=== PATIENT | male | born 1975 | race Caucasian/White ===

== ENCOUNTER 2018-05-18 09:25 | Emergency (ER) | payer MEDICAID ==
[~2018-05-18] VITALS: Ht 180.3 cm; Wt 102.0 kg
[~2018-05-18 09:25] MED LIST: CYCL-36 PO; MOBI15TA PO
[2018-05-18 09:28] VITALS: BP 147/65; PULSE 97; RESP 16; TEMP 100.4; O2SAT 96
[2018-05-18] MEDS ORDERED: MORPHINE SULFATE 4 MG/ML INJ IV PUSH ONE (09:45)
[2018-05-18] MEDS ORDERED: SODIUM CHLOR 0.9% 1000 ML INJ 1,000 ML IV ONE (09:45)
[2018-05-18] MEDS ORDERED: ACETAMINOPHEN 325 MG TAB PO ONE (09:45)
[2018-05-18 10:04] LABS: AUTOMATED NEUTROPHIL # 7.2 TH/MM3 (1.8-7.7); BASOPHIL # 0.3 TH/MM3 (0-0.2); HEMATOCRIT 34.1 % (39.0-51.0); HEMOGLOBIN 11.9 GM/DL (13.0-17.0); LYMPH % 4.4 % (9.0-44.0); LYMPHOCYTE # 0.4 TH/MM3 (1.0-4.8); MEAN CELL VOLUME 91.9 FL (80.0-100.0); MEAN CORPUSCULAR HEMOGLOBIN 32.1 PG (27.0-34.0); MEAN PLATELET VOLUME 8.7 FL (7.0-11.0); MONO % 5.4 % (0.0-8.0); MONOCYTE # 0.5 TH/MM3 (0-0.9); NEUT % 87.2 % (16.0-70.0); PLATELET COUNT 52 TH/MM3 (150-450); RED BLOOD COUNT 3.71 MIL/MM3 (4.50-5.90); RED CELL DISTRIBUTION WIDTH 13.9 % (11.6-17.2); WHITE BLOOD COUNT 8.4 TH/MM3 (4.0-11.0)
[2018-05-18 10:10] LABS: CHLORIDE 104 MEQ/L (98-107); SODIUM (NA) 133 MEQ/L (136-145)
[2018-05-18 10:13] LABS: CALCIUM 8.4 MG/DL (8.5-10.1)
[2018-05-18 10:14] LABS: ALBUMIN 2.6 GM/DL (3.4-5.0); BLOOD UREA NITROGEN 7 MG/DL (7-18); GLUCOSE,RANDOM 295 MG/DL (74-106)
[2018-05-18 10:17] LABS: ALT (GPT) 30 U/L (12-78)
[2018-05-18 10:18] LABS: TOTAL BILIRUBIN ADULT 1.5 MG/DL (0.2-1.0); TOTAL PROTEIN 5.9 GM/DL (6.4-8.2)
[2018-05-18 10:19] LABS: CREATININE 0.88 MG/DL (0.60-1.30); GLOMERULAR FILTRATION RATE 94 ML/MIN (>89)
[2018-05-18 10:20] LABS: ALKALINE PHOSPHATASE 120 U/L (45-117)
[2018-05-18 10:21] LABS: AST (GOT) 31 U/L (15-37)
[2018-05-18] MEDS ORDERED: CLINDAMYCIN 600 MG/NS PREMIX 50 ML IV ONE (11:00)
--- NOTE | 2018-05-18 11:05 | RADRPT ---
EXAM DATE: 05/18/2018 10:56 AM EDT AGE/SEX: 43 years / Male INDICATIONS: Left leg swelling. CLINICAL DATA: This is the patient's initial encounter. Patient reports that signs and symptoms have been present for 1 week and indicates a pain score of 5/10. MEDICAL/SURGICAL HISTORY: . Leg swelling. . Tympanostomy tube. COMPARISON: No prior exams available for comparison. TECHNIQUE: Venous ultrasound of both lower extremities was performed from the inguinal ligament to t he proximal calf. Real-time, color Doppler and spectral tracing, compression and augmentation techni ques were used. FINDINGS: There is normal compressibility of the deep venous system from the inguinal region to the p roximal calf. No echogenic clot is seen in the lumen of the common femoral, femoral, popliteal, and posterior tibial veins. There is a normal response of the venous system to proximal and distal augme ntation and respiration. CONCLUSION: 1. No sonographic evidence for left lower extremity DVT. Electronically signed by: Hank Stauffer MD 05/18/2018 11:04 AM EDT
[2018-05-18 11:20] VITALS: BP 135/54; PULSE 89; RESP 18; TEMP 99.4; O2SAT 97
--- NOTE | 2018-05-18 11:53 | PD ---
HPI Chief Complaint: Fever Time Seen by Provider: 09:37 Travel History International Travel<30 days: No Contact w/Intl Traveler<30days: No Traveled to known affect area: No History of Present Illness HPI Patient is a 43 year old male who comes in complaining of left leg pain and fevers. He says this started last night. He has been taking Ibuprofen for pain and fever. He says he has had cellulitis multiple times in the past. 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 He denies chest pain or SOB. He denies nausea or vomiting. Movement or touching his leg makes his pain worse. Severity is moderate. [facility] Past Medical History Medical History: Denies Significant Hx Influenza Vaccination: No Past Surgical History Tympanostomy Tube: Yes Other Surgery: Yes (TUBES IN EARS CHILD) Social History Alcohol Use: Yes (DAILY) Tobacco Use: Yes (QUIT 2014) Substance Use: No Allergies-Medications (Allergen,Severity, Reaction): Coded Allergies: penicillin G (Unverified Allergy, Severe, UNKNOWN " A CHILD", 05/18/18) Reported Meds & Prescriptions Reported Meds & Active Scripts Active Review of Systems Except as stated in HPI: all other systems reviewed are Neg General / Constitutional: Positive: Fever HENT: No: Headaches, Lightheadedness Cardiovascular: No: Chest Pain or Discomfort Respiratory: No: Cough, Shortness of Breath Gastrointestinal: No: Nausea, Vomiting Musculoskeletal: Positive: Pain Skin: Positive Change in Pigmentation Neurologic: No: Weakness, Dizziness Physical Exam Narrative GENERAL: Awake and alert, in no acute distress. SKIN: Left dillard erythematous, warm to the touch. No subcutaneous emphysema, no abscess or wounds. HEAD: Atraumatic. Normocephalic. EYES: Pupils equal and round. No scleral icterus. ENT: Mucous membranes pink and moist. NECK: Trachea midline. No JVD. CARDIOVASCULAR: Regular rate and rhythm. No murmur appreciated. RESPIRATORY: No accessory muscle use. Clear to auscultation. Breath sounds equal bilaterally. GASTROINTESTINAL: Abdomen soft, non-tender, nondistended. MUSCULOSKELETAL: No obvious deformities. No clubbing. No cyanosis. Pedal pulse intact. Mild edema of the left lower leg. NEUROLOGICAL: Awake and alert. No obvious cranial nerve deficits. Motor grossly within normal limits. Normal speech. PSYCHIATRIC: Appropriate mood and affect; insight and judgment normal. Data Data Last Documented VS Vital Signs Date Time Temp Pulse Resp B/P (MAP) Pulse Ox O2 Delivery O2 Flow Rate FiO2 05/18/18 11:20 99.4 89 18 135/54 (81) 97 Room Air Orders Orders Iv Access Insert/Monitor (05/18/18 09:43) Complete Blood Count With Diff (05/18/18 09:43) Comprehensive Metabolic Panel (05/18/18 09:43) Us Leg Venous Doppler (05/18/18 ) Blood Culture (05/18/18 09:43) Sodium Chlor 0.9% 1000 Ml Inj (Ns 1000 M (05/18/18 09:45) Acetaminophen (Tylenol) (05/18/18 09:45) Morphine Inj (Morphine Inj) (05/18/18 09:45) Clindamycin 600 Mg/Ns Premix (Cleocin 60 (05/18/18 11:00) Labs Laboratory Tests Test 05/18/18 09:50 White Blood Count 8.4 TH/MM3 Red Blood Count 3.71 MIL/MM3 Hemoglobin 11.9 GM/DL Hematocrit 34.1 % Mean Corpuscular Volume 91.9 FL Mean Corpuscular Hemoglobin 32.1 PG Mean Corpuscular Hemoglobin Concent 35.0 % Red Cell Distribution Width 13.9 % Platelet Count 52 TH/MM3 Mean Platelet Volume 8.7 FL Neutrophils (%) (Auto) 87.2 % Lymphocytes (%) (Auto) 4.4 % Monocytes (%) (Auto) 5.4 % Eosinophils (%) (Auto) 0.0 % Basophils (%) (Auto) 3.0 % Neutrophils # (Auto) 7.2 TH/MM3 Lymphocytes # (Auto) 0.4 TH/MM3 Monocytes # (Auto) 0.5 TH/MM3 Eosinophils # (Auto) 0.0 TH/MM3 Basophils # (Auto) 0.3 TH/MM3 CBC Comment AUTO DIFF Differential Comment AUTO DIFF CONFIRMED Platelet Estimate LOW Platelet Morphology Comment NORMAL Red Cell Morphology Comment NORMAL Blood Urea Nitrogen 7 MG/DL Creatinine 0.88 MG/DL Random Glucose 295 MG/DL Total Protein 5.9 GM/DL Albumin 2.6 GM/DL Calcium Level 8.4 MG/DL Alkaline Phosphatase 120 U/L Aspartate Amino Transf (AST/SGOT) 31 U/L Alanine Aminotransferase (ALT/SGPT) 30 U/L Total Bilirubin 1.5 MG/DL Sodium Level 133 MEQ/L Potassium Level 4.3 MEQ/L Chloride Level 104 MEQ/L Carbon Dioxide Level 21.0 MEQ/L Anion Gap 8 MEQ/L Estimat Glomerular Filtration Rate 94 ML/MIN MDM Medical Decision Making Medical Screen Exam Complete: Yes Emergency Medical Condition: Yes Medical Record Reviewed: Yes Differential Diagnosis cellulitis vs DVT vs abscess Narrative Course Patient is a 43-year-old male comes in complaining of left leg pain and swelling. Exam shows erythema and warmth of the leg. IV established, labs sent. Labs show no acute abnormalities other than a glucose of 295. Patient has no history of diabetes. He says he has not eaten today yet. Ultrasound of the leg performed shows no evidence of DVT. Last 24 hours Impressions Lower Extremity Ultrasound 05/18/18 0000 Signed Impressions: CONCLUSION: 1. No sonographic evidence for left lower extremity DVT. Patient given pain medicine, clindamycin, IV fluids. He is comfortable with discharge at this time. He says he would like to try taking oral medications at home. He will be discharged with a prescription for clindamycin. I discussed with him the likelihood that he now has diabetes. Given a prescription for metformin. Advised to follow-up at the [facility] clinic. Advised return anytime for any worsening symptoms. Told to keep a close eye on his leg and to come back if it worsens at any time or does not improve in the next few days. He is agreeable with this plan. Diagnosis Primary Impression: Cellulitis Qualified Codes: L03.116 - Cellulitis of left lower limb Additional Impression: Diabetes Qualified Codes: E11.9 - Type 2 diabetes mellitus without complications Patient Instructions: Cellulitis (ED), General Instructions, Type 2 Diabetes in Adults (ED) Additional Instructions: Take all of your antibiotics. Your glucose was elevated today, suggesting you have Diabetes. Take Metformin for control of your sugar. Follow up with [facility]. Return any time for any worsening symptoms. Scripts Metformin (Metformin) 500 Mg Tab 500 MG PO DAILY for Blood Sugar Management, #30 TAB 0 Refills With a meal Prov: Candi Oviedo MD 05/18/18 Clindamycin (Clindamycin) 300 Mg Cap 600 MG PO Q8H for Infection for 7 Days, #42 CAP 0 Refills Prov: Candi Oviedo MD 05/18/18 Disposition: 01 DISCHARGE HOME Condition: Stable Candi Oviedo MD May 18, 2018 11:53
[2018-05-18] MEDS ORDERED: METF500T PO (12:00)
[2018-05-18] MEDS ORDERED: CLIN300C5 PO (12:00)
== END 2018-05-18 12:10 | disposition home or self-care (01) ==
LOC: PHED 09:25
DX: L03.116 Cellulitis of left lower limb (principal); E11.9 Type 2 diabetes mellitus without complications; R50.9 Fever, unspecified; Z87.891 Personal history of nicotine dependence; Z88.0 Allergy status to penicillin
CPT/HCPCS: 80053; 85025; 87040; 93971; 96361; 96374; 96375; 99285; J2270; J7030

== ENCOUNTER 2018-05-20 10:19 | Inpatient (IN) | payer MEDICAID ==
[~2018-05-20] VITALS: Ht 177.8 cm; Wt 97.5 kg
[~2018-05-20 10:19] MED LIST changes: +CLIN300C5 PO; +METF500T PO
[2018-05-20 10:24] VITALS: BP 128/69; PULSE 83; RESP 16; TEMP 98.3; O2SAT 98
--- NOTE | 2018-05-20 10:42 | PD ---
HPI Chief Complaint: Skin Problem Time Seen by Provider: 10:29 Travel History International Travel<30 days: No Contact w/Intl Traveler<30days: No Traveled to known affect area: No History of Present Illness HPI 43-year-old male with history of DM presents to the ED for evaluation of worsening cellulitis. Patient was seen in the ED 2 days ago, prescribed outpatient antibiotics. He endorses compliance with this but despite this states that his left leg has become increasingly reddened, streaking now into the groin with associated left groin pain. Left leg pain is rated 8/10, throbbing, no alleviating or exacerbating factors reported. Patient denies history of MRSA. He states that he felt feverish but has not measured a temperature at home. Denies nausea, vomiting, numbness, tingling, weakness, limitations to range of motion of the extremity. 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 Last tetanus immunization date unknown. PFSH Past Medical History Diabetes: Yes (type 2) Past Surgical History Tympanostomy Tube: Yes Other Surgery: Yes (TUBES IN EARS CHILD) Social History Alcohol Use: Yes (DAILY) Tobacco Use: Yes (QUIT 2014) Substance Use: No Allergies-Medications (Allergen,Severity, Reaction): Coded Allergies: penicillin G (Unverified Allergy, Severe, UNKNOWN " A CHILD", 05/20/18) Reported Meds & Prescriptions Reported Meds & Active Scripts Active Metformin (Metformin HCl) 500 Mg Tab 500 Mg PO DAILY With a meal Clindamycin (Clindamycin HCl) 300 Mg Cap 600 Mg PO Q8H 7 Days Review of Systems Except as stated in HPI: all other systems reviewed are Neg Physical Exam Narrative GENERAL: Well-nourished, well-developed white male no acute distress. SKIN: Focused skin assessment warm/dry. Subcentimeter superficial abrasion on the dorsum of the left foot. Warm, tender, edematous left lower leg with cellulitic streaking to the groin. Tender lymphadenopathy in the left groin. Chronic skin changes of the right lower extremity. HEAD: Normocephalic. EYES: No scleral icterus. No injection or drainage. NECK: Supple, trachea midline. No JVD or lymphadenopathy. CARDIOVASCULAR: Regular rate and rhythm without murmurs, gallops, or rubs. RESPIRATORY: Breath sounds clear and equal bilaterally. No accessory muscle use. GASTROINTESTINAL: Abdomen soft, non-tender, nondistended. Active bowel sounds. MUSCULOSKELETAL: No cyanosis, or edema. BACK: Nontender without obvious deformity. No CVA tenderness. Data Data Last Documented VS Vital Signs Date Time Temp Pulse Resp B/P (MAP) Pulse Ox O2 Delivery O2 Flow Rate FiO2 05/20/18 10:24 98.3 83 16 128/69 (88) 98 Orders Orders Basic Metabolic Panel (Bmp) (05/20/18 10:35) Complete Blood Count With Diff (05/20/18 10:35) Blood Culture (05/20/18 10:35) Iv Access Insert/Monitor (05/20/18 10:35) Lactic Acid (05/20/18 10:35) Vancomycin Inj (Vancomycin Inj) (05/20/18 10:45) Tetanus/Diphtheria Tox Adult (Tetanus/Di (05/20/18 10:45) Levofloxacin 500 Mg Premix Inj (Levaquin (05/20/18 12:15) Admit To Inpatient (05/20/18 ) Vital Signs (Adult) Q4H (05/20/18 12:10) Activity Oob Ad Loretta (05/20/18 12:10) Diet Regular Basic (05/20/18 Lunch) Sodium Chloride 0.9% Flush (Ns Flush) (05/20/18 12:15) Sodium Chloride 0.9% Flush (Ns Flush) (05/20/18 21:00) Acetaminophen (Tylenol) (05/20/18 12:15) Scd Bilateral/Knee High NERI.BID (05/20/18 12:10) Naloxone Inj (Narcan Inj) (05/20/18 12:15) Magnesium Hydroxide Liq (Milk Of Magnesi (05/20/18 12:15) Sennosides (Senokot) (05/20/18 12:15) Bisacodyl Supp (Dulcolax Supp) (05/20/18 12:15) Lactulose Liq (Lactulose Liq) (05/20/18 12:15) Inpatient Certification (05/20/18 ) Vancomycin Consult Pharmacy (Vancomycin (05/20/18 12:15) Admit Order (Ed Use Only) (6/24/18 12:14) Labs Laboratory Tests Test 05/20/18 10:40 White Blood Count 4.2 TH/MM3 Red Blood Count 4.07 MIL/MM3 Hemoglobin 12.6 GM/DL Hematocrit 38.0 % Mean Corpuscular Volume 93.3 FL Mean Corpuscular Hemoglobin 30.9 PG Mean Corpuscular Hemoglobin Concent 33.2 % Red Cell Distribution Width 13.8 % Platelet Count 60 TH/MM3 Mean Platelet Volume 8.0 FL Neutrophils (%) (Auto) 63.3 % Lymphocytes (%) (Auto) 22.4 % Monocytes (%) (Auto) 9.5 % Eosinophils (%) (Auto) 3.2 % Basophils (%) (Auto) 1.6 % Neutrophils # (Auto) 2.7 TH/MM3 Lymphocytes # (Auto) 0.9 TH/MM3 Monocytes # (Auto) 0.4 TH/MM3 Eosinophils # (Auto) 0.1 TH/MM3 Basophils # (Auto) 0.1 TH/MM3 CBC Comment AUTO DIFF Differential Comment AUTO DIFF CONFIRMED Platelet Estimate LOW Platelet Morphology Comment NORMAL Rouleau PRESENT Red Cell Morphology Comment NORMAL Blood Urea Nitrogen 11 MG/DL Creatinine 0.62 MG/DL Random Glucose 145 MG/DL Calcium Level 8.1 MG/DL Sodium Level 142 MEQ/L Potassium Level 3.8 MEQ/L Chloride Level 110 MEQ/L Carbon Dioxide Level 24.4 MEQ/L Anion Gap 8 MEQ/L Estimat Glomerular Filtration Rate 140 ML/MIN Lactic Acid Level 1.6 mmol/L MDM Medical Decision Making Medical Screen Exam Complete: Yes Emergency Medical Condition: Yes Medical Record Reviewed: Yes Differential Diagnosis Left lower extremity cellulitis versus MRSA versus sepsis versus failed outpatient treatment versus other Narrative Course 43-year-old diabetic male presents the ED for evaluation of worsening cellulitis of the left lower extremity. Patient was seen 2 days ago and evaluated, prescribed outpatient antibiotics. He had a negative ultrasound to rule out DVT at that time. Patient's afebrile, normotensive on presentation. Physical exam consistent with cellulitis. He has tender lymphadenopathy in the left groin as well. IV was established. Blood cultures were obtained. Patient was administered 1 g of vancomycin at 500 mg Levaquin IV. Review of the patient's record reveals last tetanus immunization in 2013. CBC: WBC 4.2, hemoglobin 12.6. CMP: BUN 11, creatinine 0.62. Random glucose 145. Lactic acid 1.6. Patient is failed outpatient treatment, worsening cellulitis. Will admit for IV antibiotics and further treatment. Patient agreeable to this plan. Discussed this plan with Dr. Powell who is in agreement. She spoke with Dr. Whittaker who agrees to accept the patient to the medicine service. Please see medicine notes for disposition. Diagnosis Primary Impression: Cellulitis of left lower extremity Cate Mills May 20, 2018 10:42
[2018-05-20] MEDS ORDERED: TETANUS/DIPHTHERIA TOXOID ADULT 0.5 ML VIAL IM ONE (10:45)
[2018-05-20] MEDS ORDERED: VANCOMYCIN INJ 1,000 MG in SODIUM CHLOR 0.9% 250 ML INJ 250 ML IV ONE (10:45)
[2018-05-20 11:06] LABS: AUTOMATED NEUTROPHIL # 2.7 TH/MM3 (1.8-7.7); BASOPHIL # 0.1 TH/MM3 (0-0.2); BASOPHIL % 1.6 % (0.0-2.0); EOSINOPHIL # 0.1 TH/MM3 (0-0.4); EOSINOPHIL % 3.2 % (0.0-4.0); HEMOGLOBIN 12.6 GM/DL (13.0-17.0); LYMPH % 22.4 % (9.0-44.0); LYMPHOCYTE # 0.9 TH/MM3 (1.0-4.8); MEAN CELL VOLUME 93.3 FL (80.0-100.0); MEAN CORPUSCULAR HEMOGLOBIN 30.9 PG (27.0-34.0); MEAN CORPUSCULAR HGB CONC 33.2 % (32.0-36.0); MONO % 9.5 % (0.0-8.0); MONOCYTE # 0.4 TH/MM3 (0-0.9); NEUT % 63.3 % (16.0-70.0); PLATELET COUNT 60 TH/MM3 (150-450); RED BLOOD COUNT 4.07 MIL/MM3 (4.50-5.90); RED CELL DISTRIBUTION WIDTH 13.8 % (11.6-17.2); WHITE BLOOD COUNT 4.2 TH/MM3 (4.0-11.0)
[2018-05-20 11:17] LABS: BICARBONATE 24.4 MEQ/L (21.0-32.0); CALCIUM 8.1 MG/DL (8.5-10.1)
[2018-05-20 11:24] LABS: CREATININE 0.62 MG/DL (0.60-1.30)
[2018-05-20 11:28] LABS: ROULEAUX PRESENT (NORMAL)
[2018-05-20] MEDS ORDERED: NORC5TAB PO (11:32)
[2018-05-20] MEDS ORDERED: ACETAMINOPHEN 325 MG TAB PO PRN (12:15)
[2018-05-20] MEDS ORDERED: LACTULOSE SYRUP 20 GM/30 ML CUP PO PRN (12:15)
[2018-05-20] MEDS ORDERED: LEVOFLOXACIN 500 MG PREMIX INJ 100 ML IV ONE (12:15)
[2018-05-20] MEDS ORDERED: BISACODYL 10 MG SUPP RECTAL PRN (12:15)
[2018-05-20] MEDS ORDERED: SENNOSIDES 8.6 MG TAB PO PRN (12:15)
[2018-05-20] MEDS ORDERED: SODIUM CHLORIDE 0.9% FLUSH 10 ML FLUSH IV FLUSH PRN (12:15)
[2018-05-20] MEDS ORDERED: MAGNESIUM HYDROXIDE SUSP 30 ML CUP PO PRN (12:15)
[2018-05-20] MEDS ORDERED: NALOXONE HCL 0.4 MG/ML AMP IV PUSH PRN (12:15)
[2018-05-20 12:51] VITALS: BP 116/50; PULSE 77; RESP 16; O2SAT 96
[2018-05-20] MEDS ORDERED: Vancomycin Consult Pharmacy 1 EA OTHER SCH (13:00)
--- NOTE | 2018-05-20 13:41 | HHI.HP ---
[facility] Service [facility] Primary Care Physician No Primary Care Physician Admission Diagnosis cellulitis left lower extemity, failed outpatient treatment Diagnoses: Chief Complaint: Left lower extremity cellulitis Travel History International Travel<30 Days: No Contact w/Intl Traveler <30 Da: No Traveled to Known Affected Are: No History of Present Illness Mr. Schaeffer is a 43-year-old male with a history of diabetes mellitus who presents to the emergency department on 05/20/2018 due to worsening cellulitis. Patient was seen in the emergency department 2 days prior to this admission for similar complaints. He was discharged on clindamycin. He has been taking his medications. However he reports that his left leg erythema is getting worse along with left groin pain. He had high grade fever in the range of 103-104. He complains of significant pain from ankle to knee on the left side. 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 Review of Systems Except as stated in HPI: all other systems reviewed are Neg Past Family Social History Past Medical History Diabetes mellitus Past Surgical History Tympanostomy tube placed when he was a child. Reported Medications Metformin 500 mg p.o. daily Allergies: Coded Allergies: penicillin G (Unverified Allergy, Severe, UNKNOWN " A CHILD", 05/20/18) Family History No family history of heart disease, diabetes, cancer. Social History Patient admits to drinking alcohol daily, he quit smoking in 2014. Denies using illicit substance. Physical Exam Vital Signs Vital Signs Date Time Temp Pulse Resp B/P (MAP) Pulse Ox O2 Delivery O2 Flow Rate FiO2 05/20/18 12:51 77 16 116/50 (72) 96 Room Air 05/20/18 10:24 98.3 83 16 128/69 (88) 98 Physical Exam GENERAL: This is a well-nourished, well-developed patient, in no apparent distress. SKIN: No rashes, ecchymoses or lesions. Cool and dry. HEAD: Atraumatic. Normocephalic. No temporal or scalp tenderness. EYES: Pupils equal round and reactive. Extraocular motions intact. No scleral icterus. No injection or drainage. ENT: Nose without bleeding, purulent drainage or septal hematoma. Throat without erythema, tonsillar hypertrophy or exudate. Uvula midline. Airway patent. NECK: Trachea midline. No JVD or lymphadenopathy. Supple, nontender, no meningeal signs. CARDIOVASCULAR: Regular rate and rhythm without murmurs, gallops, or rubs. RESPIRATORY: Clear to auscultation. Breath sounds equal bilaterally. No wheezes , rales, or rhonchi. GASTROINTESTINAL: Abdomen soft, non-tender, nondistended. No hepato-splenomegaly , or palpable masses. No guarding. MUSCULOSKELETAL: Extremities without clubbing, cyanosis, or edema. No joint tenderness, effusion, or edema noted. No calf tenderness. Negative Homans sign bilaterally. NEUROLOGICAL: Awake and alert. Cranial nerves II through XII intact. Motor and sensory grossly within normal limits. Five out of 5 muscle strength in all muscle groups. Normal speech. Laboratory Laboratory Tests Test 05/20/18 10:40 White Blood Count 4.2 Red Blood Count 4.07 Hemoglobin 12.6 Hematocrit 38.0 Mean Corpuscular Volume 93.3 Mean Corpuscular Hemoglobin 30.9 Mean Corpuscular Hemoglobin Concent 33.2 Red Cell Distribution Width 13.8 Platelet Count 60 Mean Platelet Volume 8.0 Neutrophils (%) (Auto) 63.3 Lymphocytes (%) (Auto) 22.4 Monocytes (%) (Auto) 9.5 Eosinophils (%) (Auto) 3.2 Basophils (%) (Auto) 1.6 Neutrophils # (Auto) 2.7 Lymphocytes # (Auto) 0.9 Monocytes # (Auto) 0.4 Eosinophils # (Auto) 0.1 Basophils # (Auto) 0.1 CBC Comment AUTO DIFF Differential Comment AUTO DIFF CONFIRMED Platelet Estimate LOW Platelet Morphology Comment NORMAL Rouleau PRESENT Red Cell Morphology Comment NORMAL Blood Urea Nitrogen 11 Creatinine 0.62 Random Glucose 145 Calcium Level 8.1 Sodium Level 142 Potassium Level 3.8 Chloride Level 110 Carbon Dioxide Level 24.4 Anion Gap 8 Estimat Glomerular Filtration Rate 140 Lactic Acid Level 1.6 Date/Time Source Procedure Growth Status 05/20/18 10:50 Blood Peripheral Aerobic Blood Culture Pending Received 05/20/18 10:50 Blood Peripheral Anaerobic Blood Culture Pending Received Result Diagram: 05/20/18 1040 05/20/18 1040 Imaging 05/18/2018 patient underwent left lower extremity ultrasound which did not identify any DVT. Caprini VTE Risk Assessment Caprini VTE Risk Assessment: Mod/High Risk (score >= 2) Caprini Risk Assessment Model Point Value = 1 Point Value = 2 Point Value = 3 Point Value = 5 Age 41-60 Minor surgery BMI > 25 kg/m2 Swollen legs Varicose veins or History of unexplained or recurrent spontaneous Oral contraceptives or hormone replacement Sepsis (< 1 month) Serious lung disease, including pneumonia (< 1 month) Abnormal pulmonary function Acute myocardial infarction Congestive heart failure (< 1 month) History of inflammatory bowel disease Medical patient at bed rest Age 61-74 Arthroscopic surgery Major open surgery (> 45 min) Laparoscopic surgery (> 45 min) Malignancy Confined to bed (> 72 hours) Immobilizing plaster cast Central venous access Age >= 75 History of VTE Family history of VTE Factor V Leiden Prothrombin 11001P Lupus anticoagulant Anticardiolipin antibodies Elevated serum homocysteine Heparin-induced thrombocytopenia Other congenital or acquired thrombophilia Stroke (< 1 month) Elective arthroplasty Hip, pelvis, or leg fracture Acute spinal cord injury (< 1 month) Prophylaxis Regimen Total Risk Factor Score Risk Level Prophylaxis Regimen 0-1 Low Early ambulation 2 Moderate Order ONE of the following: *Sequential Compression Device (SCD) *Heparin 5000 units SQ BID 3-4 Higher Order ONE of the following medications: *Heparin 5000 units SQ TID *Enoxaparin/Lovenox 40 mg SQ daily (WT < 150 kg, CrCl > 30 mL/min) *Enoxaparin/Lovenox 30 mg SQ daily (WT < 150 kg, CrCl > 10-29 mL/min) *Enoxaparin/Lovenox 30 mg SQ BID (WT < 150 kg, CrCl > 30 mL/min) AND/OR *Sequential Compression Device (SCD) 5 or more Highest Order ONE of the following medications: *Heparin 5000 units SQ TID (Preferred with Epidurals) *Enoxaparin/Lovenox 40 mg SQ daily (WT < 150 kg, CrCl > 30 mL/min) *Enoxaparin/Lovenox 30 mg SQ daily (WT < 150 kg, CrCl > 10-29 mL/min) *Enoxaparin/Lovenox 30 mg SQ BID (WT < 150 kg, CrCl > 30 mL/min) AND *Sequential Compression Device (SCD) Assessment and Plan Problem List: (1) Cellulitis of left lower extremity ICD Code: L03.116 - Cellulitis of left lower limb Status: Acute (2) Diabetes mellitus ICD Code: E11.9 - Type 2 diabetes mellitus without complications Assessment and Plan Mr. 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 He was seen in the emergency department 2 days prior to this admission and underwent Doppler ultrasound which did not identify any DVT. Patient was discharged 2 days ago on clindamycin. However despite taking medications his erythema and pain have been worsening which prompted this admission. Left lower ext cellulitis -Non-purulent. Outpatient failure on Clindamycin -Will continue Vancomycin IV and Levaquin 750mg. Will add Flagyl for anaerobes. -Naproxen, Percocet PRN for pain. Diabetes mellitus - Recently diagnosed in the ED. Will check HbA1c. - Sliding scale insulin. If needed, we will initiate Levemir. Full code. Aydee. Physician Certification 2 Midnight Certification Type: Admission for Inpatient Services Order for Inpatient Services The services are ordered in accordance with Medicare regulations or non- Medicare payer requirements, as applicable. In the case of services not specified as inpatient-only, they are appropriately provided as inpatient services in accordance with the 2-midnight benchmark. Estimated LOS (days): 2 days is the estimated time the patient will need to remain in the hospital, assuming treatment plan goals are met and no additional complications. Post-Hospital Plan: Home Syed Whittaker DO May 20, 2018 1:41 pm
[2018-05-20 13:58] VITALS: BP 118/60; PULSE 78; RESP 20; TEMP 98.1; O2SAT 96
[2018-05-20] MEDS ORDERED: GLUCAGON 1 MG/ML VIAL OTHER PRN (14:00)
[2018-05-20] MEDS ORDERED: DEXTROSE 50% IN WATER 50 ML VIAL(D50) IV PUSH PRN (14:00)
[2018-05-20] MEDS ORDERED: metroNIDAZOLE 500 MG TAB PO ONE (14:30)
[2018-05-20] MEDS ORDERED: NAPROXEN 375 MG TAB PO PRN (14:45)
[2018-05-20] MEDS: oxyCODONE/ACETAMINOPHEN 7.5 MG/325 MG TAB PO PRN ×2 (14:47→20:30)
[2018-05-20 15:25] VITALS: BP 122/64; PULSE 74; RESP 20; TEMP 97.8; O2SAT 96
[2018-05-20] MEDS: ENOXAPARIN SODIUM 40 MG/0.4 ML SYRINGE SQ SCH (15:51)
[2018-05-20] MEDS: INSULIN ASPART SUPPLEMENTAL SCALE SQ SCH ×2 (17:39→20:30)
[2018-05-20 20:00] VITALS: BP 147/68; PULSE 78; RESP 20; TEMP 97.9; O2SAT 97
[2018-05-20] MEDS: SODIUM CHLORIDE 0.9% FLUSH 10 ML FLUSH IV FLUSH SCH (20:29)
[2018-05-20] MEDS: VANCOMYCIN INJ 1,500 MG in SODIUM CHLORID 0.9% 500 ML INJ 500 ML IV SCH (20:29)
[2018-05-20] MEDS: metroNIDAZOLE 500 MG TAB PO SCH (22:40)
[2018-05-21] VITALS: BP 131/64; PULSE 71; RESP 20; TEMP 97.1; O2SAT 96
[2018-05-21] MEDS: oxyCODONE/ACETAMINOPHEN 7.5 MG/325 MG TAB PO PRN ×3 (03:21→20:27)
[2018-05-21] MEDS: metroNIDAZOLE 500 MG TAB PO SCH ×3 (06:06→21:26)
[2018-05-21 08:00] VITALS: BP 130/65; PULSE 95; RESP 22; TEMP 96.4; O2SAT 95
[2018-05-21] MEDS: INSULIN ASPART SUPPLEMENTAL SCALE SQ SCH ×4 (08:00→20:27)
[2018-05-21] MEDS: VANCOMYCIN INJ 1,500 MG in SODIUM CHLORID 0.9% 500 ML INJ 500 ML IV SCH (08:51)
[2018-05-21] MEDS: SODIUM CHLORIDE 0.9% FLUSH 10 ML FLUSH IV FLUSH SCH ×2 (08:52→21:26)
[2018-05-21] MEDS: LEVOFLOXACIN 750 MG TAB PO SCH (08:52)
[2018-05-21 11:50] VITALS: BP 133/69; PULSE 62; RESP 20; TEMP 96.2; O2SAT 96
--- NOTE | 2018-05-21 14:28 | HHI.PR ---
Subjective Remarks Follow-up for left lower extremity pain, cellulitis. Patient is currently doing well. No fever or chills. He complains of persistent lower extremity pain. Objective Vitals Vital Signs Date Time Temp Pulse Resp B/P (MAP) Pulse Ox O2 Delivery O2 Flow Rate FiO2 05/21/18 08:00 96.4 95 22 130/65 (86) 95 05/21/18 00:00 97.1 71 20 131/64 (86) 96 05/20/18 20:00 97.9 78 20 147/68 (94) 97 05/20/18 15:47 18 05/20/18 15:25 97.8 74 20 122/64 (83) 96 I/O 05/20/18 05/20/18 05/20/18 05/21/18 05/21/18 05/21/18 06:59 14:59 22:59 06:59 14:59 22:59 Intake Total 550 ml 2120 ml Output Total 350 ml Balance 550 ml 1770 ml Intake Oral 300 ml 2020 ml IV Total 250 ml 100 ml Output Urine Total 350 ml # Voids 3 # Bowel Movements 0 Result Diagram: 05/20/18 1040 05/20/18 1040 Imaging 05/18/2018 Doppler ultrasound of the lower extremity shows no DVT. This was done at [facility]. Objective Remarks GENERAL: Alert, oriented 3, NAD. SKIN: Warm and dry. HEAD: Normocephalic. EYES: No scleral icterus. No injection or drainage. NECK: Supple, trachea midline. No JVD or lymphadenopathy. CARDIOVASCULAR: Regular rate and rhythm without murmurs, gallops, or rubs. RESPIRATORY: Breath sounds equal bilaterally. No accessory muscle use. GASTROINTESTINAL: Abdomen soft, non-tender, nondistended. MUSCULOSKELETAL: Left lower extremity below knee significant erythema and pain on palpation. BACK: Nontender without obvious deformity. No CVA tenderness. Procedures None A/P Problem List: (1) Cellulitis of left lower extremity ICD Code: L03.116 - Cellulitis of left lower limb Status: Acute (2) Diabetes mellitus ICD Code: E11.9 - Type 2 diabetes mellitus without complications Assessment and Plan Mr. 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 He was seen in the emergency department 2 days prior to this admission and underwent Doppler ultrasound which did not identify any DVT. Patient was discharged 2 days ago on clindamycin. However despite taking medications his erythema and pain have been worsening which prompted this admission. Left lower ext cellulitis -Non-purulent. Outpatient failure on Clindamycin -Currently on Vancomycin IV and Levaquin 750mg and Flagyl for anaerobes. -Switch IV Vancomycin to PO Doxycycline. -Naproxen, Percocet PRN for pain. -D-Dimer 0.77. This is considered elevated. Due to high suspicion, I would like to get another Doppler study of the LE. Diabetes mellitus - Recently diagnosed in the ED. HbA1c pending. - Sliding scale insulin. If needed, we will initiate Levemir. Full code. Eulanox. Syed Whittaker DO May 21, 2018 14:28
[2018-05-21 15:00] VITALS: BP 158/73; PULSE 62; RESP 20; TEMP 96.2; O2SAT 97
[2018-05-21] MEDS: ENOXAPARIN SODIUM 40 MG/0.4 ML SYRINGE SQ SCH (15:14)
[2018-05-21] MEDS ORDERED: ONDANSETRON ODT 4 MG TAB PO PRN (15:15)
--- NOTE | 2018-05-21 16:13 | RADRPT ---
EXAM DATE: 05/21/2018 3:48 PM EDT AGE/SEX: 43 years / Male INDICATIONS: Left leg erythema. Left leg pain from ankle to knee. CLINICAL DATA: This is the patient's initial encounter. Patient reports that signs and symptoms have been present for 3 days and indicates a pain score of 2/10. MEDICAL/SURGICAL HISTORY: Diabetes mellitus type II. Cellulitis. . Tympanostomy tubes. COMPARISON: [facility], US LEG LEFT VENOUS DOPPLER, 05/18/2018. . TECHNIQUE: Venous ultrasound of both lower extremities was performed from the inguinal ligament to t he proximal calf. Real-time, color Doppler and spectral tracing, compression and augmentation techni ques were used. FINDINGS: There is good visualization of the deep venous system. Veins are compressible with good augmentable f low. CONCLUSION: Negative for deep venous thrombosis. Dre Garcia MD FACR Electronically signed by: Dre Garcia MD 05/21/2018 4:12 PM EDT
[2018-05-21 16:23] LABS: HEMOGLOBIN A1C 5.5 % (4.3-6.0)
[2018-05-21 20:14] VITALS: BP 133/73; PULSE 80; RESP 18; TEMP 97.3; O2SAT 97
[2018-05-21] MEDS: DOXYCYCLINE HYCLATE 100 MG TAB PO SCH (20:27)
[2018-05-21 21:06] VITALS: BP 133/73; PULSE 80; RESP 18; TEMP 97.3; O2SAT 97
[2018-05-22 00:02] VITALS: BP 130/70; PULSE 80; RESP 18; TEMP 97.5; O2SAT 97
[2018-05-22 01:12] VITALS: BP 130/70; PULSE 80; RESP 18; TEMP 97.5; O2SAT 97
[2018-05-22] MEDS: oxyCODONE/ACETAMINOPHEN 7.5 MG/325 MG TAB PO PRN (04:26)
[2018-05-22] MEDS: metroNIDAZOLE 500 MG TAB PO SCH (04:26)
[2018-05-22 04:28] VITALS: BP 133/62; PULSE 69; RESP 18; TEMP 97.2; O2SAT 97
[2018-05-22] MEDS ORDERED: VANCOMYCIN TROUGH ONE (07:45)
[2018-05-22] MEDS: INSULIN ASPART SUPPLEMENTAL SCALE SQ SCH (08:00)
[2018-05-22 08:28] VITALS: BP 122/58; PULSE 61; RESP 18; TEMP 96.8; O2SAT 96
--- NOTE | 2018-05-22 09:12 | HHI.DS ---
Discharge Summary Admission Date May 20, 2018 at 12:16 Discharge Date: May 22, 2018 Admitting Diagnosis cellulitis left lower extremity, failed outpatient treatment (1) Cellulitis of left lower extremity ICD Code: L03.116 - Cellulitis of left lower limb Status: Acute (2) Diabetes mellitus ICD Code: E11.9 - Type 2 diabetes mellitus without complications Procedures None Brief History - From Admission Mr. Schaeffer is a 43-year-old male with a history of diabetes mellitus who presents to the emergency department on 05/20/2018 due to worsening cellulitis. Patient was seen in the emergency department 2 days prior to this admission for similar complaints. He was discharged on clindamycin. He has been taking his medications. However he reports that his left leg erythema is getting worse along with left groin pain. He had high grade fever in the range of 103-104. He complains of significant pain from ankle to knee on the left side. 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 CBC/BMP: 05/20/18 1040 05/20/18 1040 Significant Findings Laboratory Tests Test 05/20/18 10:40 05/20/18 14:30 Red Blood Count 4.07 MIL/MM3 (4.50-5.90) Hemoglobin 12.6 GM/DL (13.0-17.0) Hematocrit 38.0 % (39.0-51.0) Platelet Count 60 TH/MM3 (150-450) Monocytes (%) (Auto) 9.5 % (0.0-8.0) Lymphocytes # (Auto) 0.9 TH/MM3 (1.0-4.8) Platelet Estimate LOW (NORMAL) Rouleau PRESENT (NORMAL) Random Glucose 145 MG/DL (74-106) Calcium Level 8.1 MG/DL (8.5-10.1) Chloride Level 110 MEQ/L (98-107) D-Dimer Quantitative (PE/DVT) 0.77 MG/L FEU (0.00-0.50) Imaging Last Impressions Lower Extremity Ultrasound 05/21/18 0000 Signed Impressions: CONCLUSION: Negative for deep venous thrombosis. Dre Garcia MD FACR PE at Discharge GENERAL: Alert, oriented 3, NAD. SKIN: Warm and dry. HEAD: Normocephalic. EYES: No scleral icterus. No injection or drainage. NECK: Supple, trachea midline. No JVD or lymphadenopathy. CARDIOVASCULAR: Regular rate and rhythm without murmurs, gallops, or rubs. RESPIRATORY: Breath sounds equal bilaterally. No accessory muscle use. GASTROINTESTINAL: Abdomen soft, non-tender, nondistended. MUSCULOSKELETAL: Left lower extremity below knee significant erythema and pain on palpation. BACK: Nontender without obvious deformity. No CVA tenderness. Pt update on day of discharge Follow-up left lower extremity cellulitis. Patient seen and examined, lying in bed comfortably no apparent distress. Erythema much improved. Pain has resolved. Vital signs stable overnight. No fever overnight. Will discharge home with antibiotics follow-up with PCP. Hospital Course Mr. 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 He was seen in the emergency department 2 days prior to this admission and underwent Doppler ultrasound which did not identify any DVT. Patient was discharged 2 days ago on clindamycin. However despite taking medications his erythema and pain have been worsening which prompted this admission. Patient failed outpatient treatment for left lower extremity cellulitis with clindamycin. During hospitalization patient was placed on vancomycin IV as well as Levaquin and Flagyl for anaerobic coverage. Patient's IV Vanco was switched to doxycycline. Pain was well-controlled with Percocet naproxen. D-dimer was 0.77 mildly elevated. Left lower extremity Doppler study was performed showing negative for DVT. Patient did not have any chest pain or shortness of breath. Patient does have a history of diabetes mellitus, was recently diagnosed in the ED. Hemoglobin A1c is 5.5. Patient will be continued on metformin as ordered outpatient follow-up with PCP. Patient was stabilized upon discharge. Pt Condition on Discharge: Good Discharge Disposition: Discharge Home Discharge Time: > 30 minutes Discharge Instructions DIET: Follow Instructions for: Heart Healthy Diet Speech Therapy-Diet Recommends: Regular Activities you can perform: Regular-No Restrictions Follow up Referrals: PCP Follow-up - 1 Week New Medications: Lactobacillus Acidophilus (Lactobacillus Acidophilus) 1 Billion Cell Tab 1 TAB PO TIDAC for Nutritional Supplement for 7 Days, #21 TAB 0 Refills Doxycycline Hyclate (Doxycycline Hyclate) 100 Mg Tab 100 MG PO BID for cellulitis for 7 Days, #14 TAB Levofloxacin (Levaquin) 750 Mg Tablet 750 MG PO DAILY for cellulitis for 7 Days, #7 TAB Metronidazole (Flagyl) 500 Mg Tab 500 MG PO Q8HR for cellulitis for 7 Days, #21 TAB Oxycodone HCl/Acetaminophen (Oxycodon-Acetaminophen 7.5-325) 7.5 Mg-325 Mg Tablet 1 TAB PO Q6H PRN for PAIN SCALE 5 TO 10 for 2 Days, #8 TAB Continued Medications: Metformin (Metformin) 500 Mg Tab 500 MG PO DAILY for Blood Sugar Management, #30 TAB 0 Refills With a meal Discontinued Medications: Clindamycin (Clindamycin) 300 Mg Cap 600 MG PO Q8H for Infection for 7 Days, #42 CAP 0 Refills Candi Alcantar May 22, 2018 09:12
[2018-05-22] MEDS ORDERED: OXYC1TAB35 PO (09:16)
[2018-05-22] MEDS ORDERED: METR-1 PO (09:16)
[2018-05-22] MEDS ORDERED: DOXY100T PO (09:16)
[2018-05-22] MEDS ORDERED: LEVA750T9 PO (09:16)
[2018-05-22] MEDS ORDERED: LACTTAB8 PO (09:17)
--- NOTE | 2018-05-22 09:17 | HHI.DCPOC ---
Discharge Care Plan Diagnosis: (1) Diabetes mellitus (2) Cellulitis of left lower extremity Goals to Promote Your Health * To prevent worsening of your condition and complications * To maintain your health at the optimal level Directions to Meet Your Goals Take your medications as prescribed Follow your dietary instruction Follow activity as directed Keep your appointments as scheduled Take your immunizations and boosters as scheduled If your symptoms worsen call your PCP, if no PCP go to Urgent Care Center or Emergency Room Smoking is Dangerous to Your Health. Avoid second hand smoke Call the 24-hour hour crisis hotline for domestic abuse at Candi Alcantar May 22, 2018 09:17
[2018-05-22] MEDS: DOXYCYCLINE HYCLATE 100 MG TAB PO SCH (10:10)
[2018-05-22] MEDS: SODIUM CHLORIDE 0.9% FLUSH 10 ML FLUSH IV FLUSH SCH (10:11)
[2018-05-22] MEDS: LEVOFLOXACIN 750 MG TAB PO SCH (10:11)
== END 2018-05-22 10:57 | disposition home or self-care (01) | DRG 603 ==
LOC: PHED 10:19 → PHEDA 12:16 → PH3A 13:51
PROVIDERS: ADMIT Hospitalist; ATTEND Hospitalist
DX: L03.116 Cellulitis of left lower limb (principal); E11.9 Type 2 diabetes mellitus without complications; R59.1 Generalized enlarged lymph nodes; Z79.84 Long term (current) use of oral hypoglycemic drugs; Z87.891 Personal history of nicotine dependence
CPT/HCPCS: 80048; 82948; 83036; 83605; 85025; 85379; 87040; 93971; 96365; J1650; J1815; J1956; J3370; J7040; J7050